=== PATIENT | female | born 1980 | race Caucasian/White ===

== ENCOUNTER 2020-11-24 01:05 | Inpatient (IN) | payer SELFPAY ==
[~2020-11-24] VITALS: Ht 172.7 cm; Wt 83.9 kg
[2020-11-24 01:08] VITALS: BP 136/77
[2020-11-24] MEDS ORDERED: MORPHINE SULFATE 4 MG/ML SYR IVP ONE (02:00)
[2020-11-24] MEDS ORDERED: ONDANSETRON 4 MG/2 ML VIAL IVP ONE (02:00)
[2020-11-24 02:25] LABS: BASOPHILS % (AUTO) 0.4 % (0.0-2.0); EOSINOPHILS % (AUTO) 0.6 % (0.0-4.0); HEMATOCRIT 30.8 % (36-48); HEMOGLOBIN 9.6 g/dL (12.0-16.0); LYMPHOCYTES # (AUTO) 0.9 K/uL (2.5-16.5); LYMPHOCYTES % (AUTO) 13.5 % (20.5-51.1); MEAN CORPUSCULAR HEMOGLOBIN 21 pg (27-31); MEAN CORPUSCULAR HGB CONC 31 g/dL (33-37); MEAN CORPUSCULAR VOLUME 68.2 fL (80-94); MONOCYTES # (AUTO) 0.3 K/uL (0.8-1.0); MONOCYTES % (AUTO) 3.9 % (1.7-9.3); NEUTROPHILS # (AUTO) 5.6 K/uL (1.8-7.7); NEUTROPHILS % (AUTO) 81.6 % (42.2-75.2); PLATELET COUNT (AUTO) 325 K/uL (140-450); RED BLOOD CELL COUNT(AUTO) 4.51 MIL/uL (4.20-5.40); RED CELL DISTRIBUTION WIDTH 17.9 % (11.6-13.7); WHITE BLOOD COUNT (AUTO) 6.9 K/uL (4.8-10.8)
[2020-11-24 02:25] LABS: APPEARANCE,URINE CLEAR (CLEAR); BILIRUBIN,URINE NEGATIVE (NEGATIVE); BLOOD, URINE TRACE-I (NEGATIVE); COLOR,URINE YELLOW (YELLOW); LEUKOCYTE ESTERASE ,URINE TRACE (NEGATIVE); NITRITE, URINE NEGATIVE (NEGATIVE); UGLUCOSE NEGATIVE (NEGATIVE)
[2020-11-24 02:34] LABS: RBC,URINE 0-5 /HPF (0-5); WBC,URINE 0-5 /HPF (0-5)
[2020-11-24 02:49] LABS: ALBUMIN 4.1 g/dL (3.4-5.0); ANION GAP 15.9 (8-16); CARBON DIOXIDE 22.9 mmol/L (21-32); CREATININE 0.7 mg/dL (0.6-1.3); POTASSIUM 3.8 mmol/L (3.5-5.1); TOTAL BILIRUBIN 0.6 mg/dL (0.0-1.0)
[2020-11-24] MEDS ORDERED: NACL 0.9% 1,000 ML IV ONE (04:45)
[2020-11-24] MEDS ORDERED: ACETAMINOPHEN 325 MG TAB PO PRN (08:50)
[2020-11-24] MEDS ORDERED: ZOLPIDEM 5 MG TAB PO PRN (08:50)
[2020-11-24] MEDS ORDERED: ONDANSETRON 4 MG/2 ML VIAL IM/IVP PRN (08:50)
[2020-11-24] MEDS ORDERED: LORazepam 2 MG/ML VIAL IM/IVP PRN (08:50)
[2020-11-24] MEDS ORDERED: DOCUSATE SODIUM 100 MG GELCAP PO PRN (08:50)
[2020-11-24] MEDS ORDERED: MORPHINE SULFATE 2 MG/ML SYR IVP PRN (08:50)
[2020-11-24] MEDS ORDERED: HYDROcodone/APAP 5/325 MG 1 TAB TAB PO PRN (08:50)
[2020-11-24 09:20] VITALS: BP 118/63
[2020-11-24 09:30] LABS: CHOL/HDL RATIO 2.9 (1-4.5); MAGNESIUM 1.9 mg/dL (1.8-2.4); PHOSPHORUS 3.1 mg/dL (2.5-4.9); THYROID STIMULATING HORMONE 0.71 uIU/mL (0.34-3.74)
[2020-11-24] MEDS ORDERED: POTASSIUM CHLORIDE 10 MEQ TABER PO PRN (09:30)
[2020-11-24] MEDS ORDERED: MAG SULF 2000 MG/WATER PREMIX 50 ML IV PRN (09:30)
[2020-11-24] MEDS: NACL 0.9% 1,000 ML IV SCH ×2 (09:39→14:45)
[2020-11-24 09:40] LABS: PROTHROMBIN TIME 9.9 secs (10.8-13.4)
[2020-11-24 09:49] LABS: BARBITURATE, URINE NEGATIVE ng/ml (NEG <=200); BENZODIAZEPINE, URINE NEGATIVE ng/mL (NEG <=200); CANNABINOID, URINE NEGATIVE ng/mL (NEG <=50); COCAINE, URINE NEGATIVE ng/mL (NEG <=300); OPIATE, URINE POSITIVE ng/mL (NEG <=2000); PHENCYCLIDINE SCREEN,URINE NEGATIVE ng/mL (NEG <=25)
[2020-11-24 16:00] VITALS: BP 111/68
[2020-11-24 20:00] VITALS: BP 115/70
[2020-11-25 04:00] VITALS: BP 116/68
[2020-11-25 06:53] LABS: BASOPHILS % (AUTO) 0.6 % (0.0-2.0); EOSINOPHILS # (AUTO) 0.2 K/uL (0-0.4); EOSINOPHILS % (AUTO) 3.6 % (0.0-4.0); HEMATOCRIT 28.1 % (36-48); HEMOGLOBIN 8.7 g/dL (12.0-16.0); LYMPHOCYTES # (AUTO) 2.2 K/uL (2.5-16.5); LYMPHOCYTES % (AUTO) 45.3 % (20.5-51.1); MEAN CORPUSCULAR HEMOGLOBIN 21 pg (27-31); MEAN CORPUSCULAR HGB CONC 31 g/dL (33-37); MEAN CORPUSCULAR VOLUME 68.7 fL (80-94); MONOCYTES # (AUTO) 0.4 K/uL (0.8-1.0); MONOCYTES % (AUTO) 9.2 % (1.7-9.3); NEUTROPHILS % (AUTO) 41.3 % (42.2-75.2); PLATELET COUNT (AUTO) 275 K/uL (140-450); RED BLOOD CELL COUNT(AUTO) 4.09 MIL/uL (4.20-5.40); RED CELL DISTRIBUTION WIDTH 18.1 % (11.6-13.7); WHITE BLOOD COUNT (AUTO) 4.8 K/uL (4.8-10.8)
[2020-11-25] MEDS: NACL 0.9% 1,000 ML IV SCH (06:54)
[2020-11-25 06:59] LABS: ANION GAP 10.2 (8-16); CARBON DIOXIDE 27.2 mmol/L (21-32); CREATININE 0.7 mg/dL (0.6-1.3); POTASSIUM 4.4 mmol/L (3.5-5.1)
[2020-11-25 07:04] LABS: PHOSPHORUS 3.8 mg/dL (2.5-4.9)
[2020-11-25 08:00] VITALS: BP 108/63
[2020-11-25 08:07] LABS: T4 (THYROXINE) 8.2 ug/dL (4.5-12.0)
[2020-11-25] MEDS ORDERED: FERROUS SULFATE 325 MG TABEC PO SCH (10:45)
[2020-11-25] MEDS ORDERED: ASCORBIC ACID 500 MG/5 ML ORASYR GT SCH (10:45)
[2020-11-25] MEDS ORDERED: LIDOCAINE MPF 1% 10 ML ONE (11:47)
[2020-11-25] MEDS ORDERED: BUPIVACAINE-MPF/EPI 0.25% 10 ML VIAL INJ ONE (11:47)
[2020-11-25] MEDS ORDERED: SEVOFLURANE 250 ML BTL INH ONE (12:40)
[2020-11-25] MEDS ORDERED: SUCCINYLCHOLINE CHLORIDE 200 MG/10 ML VIAL IVP ONE (12:40)
[2020-11-25] MEDS ORDERED: LIDOCAINE 2% 100 MG/5 ML SYR IVP ONE (12:40)
[2020-11-25] MEDS ORDERED: KETOROLAC 30 MG/ML VIAL ONE (12:40)
[2020-11-25] MEDS ORDERED: PROPOFOL 200 MG/20 ML VIAL IV ONE (12:40)
[2020-11-25] MEDS ORDERED: ONDANSETRON 4 MG/2 ML VIAL ONE (12:40)
[2020-11-25] MEDS ORDERED: GLYCOPYRROLATE 0.2 MG/ML VIAL ONE (12:40)
[2020-11-25] MEDS ORDERED: METOCLOPRAMIDE 10 MG/2 ML INJ VIAL ONE (12:40)
[2020-11-25] MEDS ORDERED: fentaNYL citrate 0.05 MG/ML VIAL ONE (12:40)
[2020-11-25] MEDS ORDERED: ROCURONIUM 50 MG/5 ML VIAL IV ONE (12:40)
[2020-11-25] MEDS ORDERED: NEOSTIGMINE 1:1000 10 MG/10 ML VIAL ONE (12:40)
[2020-11-25] MEDS ORDERED: DEXAMETHASONE 4 MG/ML VIAL ONE (12:40)
[2020-11-25] MEDS ORDERED: MEPERIDINE 25 MG/ML SYR ONE (12:40)
[2020-11-25] MEDS ORDERED: MEPERIDINE 25 MG/ML SYR IVP PRN (13:20)
[2020-11-25] MEDS ORDERED: ONDANSETRON 4 MG/2 ML VIAL IVP PRN (13:20)
[2020-11-25] MEDS: LACTATED RINGERS 1,000 ML IV SCH ×2 (13:20→21:40)
[2020-11-25] MEDS ORDERED: fentaNYL citrate 0.05 MG/ML VIAL IVP PRN (13:20)
[2020-11-25] MEDS ORDERED: diphenhydrAMINE 50 MG/ML VIAL IVP PRN (13:20)
[2020-11-25] MEDS ORDERED: HYDROcodone/APAP 5/325 MG 1 TAB TAB PO PRN (15:10)
[2020-11-25] MEDS ORDERED: HYDROmorphone 1 MG/ML AMP IVP PRN (15:10)
[2020-11-25 16:00] VITALS: BP 128/73
[2020-11-25 20:00] VITALS: BP 123/67
[2020-11-26] VITALS: BP 126/65
[2020-11-26 04:00] VITALS: BP 111/67
[2020-11-26] MEDS: LACTATED RINGERS 1,000 ML IV SCH (06:00)
[2020-11-26 06:04] LABS: BASOPHILS % (AUTO) 0.1 % (0.0-2.0); HEMATOCRIT 28.5 % (36-48); HEMOGLOBIN 8.8 g/dL (12.0-16.0); LYMPHOCYTES # (AUTO) 1.1 K/uL (2.5-16.5); LYMPHOCYTES % (AUTO) 14.4 % (20.5-51.1); MEAN CORPUSCULAR HEMOGLOBIN 21 pg (27-31); MEAN CORPUSCULAR HGB CONC 31 g/dL (33-37); MEAN CORPUSCULAR VOLUME 68.6 fL (80-94); MONOCYTES # (AUTO) 0.6 K/uL (0.8-1.0); MONOCYTES % (AUTO) 8.3 % (1.7-9.3); NEUTROPHILS # (AUTO) 5.6 K/uL (1.8-7.7); NEUTROPHILS % (AUTO) 77.2 % (42.2-75.2); PLATELET COUNT (AUTO) 292 K/uL (140-450); RED BLOOD CELL COUNT(AUTO) 4.15 MIL/uL (4.20-5.40); RED CELL DISTRIBUTION WIDTH 17.6 % (11.6-13.7); WHITE BLOOD COUNT (AUTO) 7.3 K/uL (4.8-10.8)
[2020-11-26] MEDS: NACL 0.9% 1,000 ML IV SCH (06:19)
[2020-11-26 06:55] LABS: CARBON DIOXIDE 23.8 mmol/L (21-32); CREATININE 0.7 mg/dL (0.6-1.3); POTASSIUM 3.8 mmol/L (3.5-5.1)
[2020-11-26 07:01] LABS: MAGNESIUM 1.9 mg/dL (1.8-2.4); PHOSPHORUS 4.5 mg/dL (2.5-4.9)
[2020-11-26 08:00] VITALS: BP 119/67
[2020-11-26] MEDS ORDERED: CEPH250C16 PO (10:19)
[2020-11-26] MEDS ORDERED: IBUP-2213 PO (10:19)
[2020-11-26 10:30] VITALS: BP 119/67
[2020-11-26] MEDS ORDERED: FERR325E14 PO (11:49)
== END 2020-11-26 11:35 | disposition home or self-care (01) | DRG 418 ==
LOC: MED 01:05 → MTU 04:45
PROC: BF101ZZ Fluoroscopy of Bile Ducts using Low Osmolar Contrast (ICD-10-PCS; 2020-11-25)
PROC: 0FT44ZZ Resection of Gallbladder, Percutaneous Endoscopic Approach (ICD-10-PCS; principal; 2020-11-25 13:20)
DX: K80.60 Calculus of gallbladder and bile duct with cholecystitis, unspecified, without obstruction (principal); N39.0 Urinary tract infection, site not specified; B96.81 Helicobacter pylori [H. pylori] as the cause of diseases classified elsewhere; D50.9 Iron deficiency anemia, unspecified; G89.29 Other chronic pain; K66.0 Peritoneal adhesions (postprocedural) (postinfection); E66.9 Obesity, unspecified; K80.20 Calculus of gallbladder without cholecystitis without obstruction; K30 Functional dyspepsia; Z20.822 Contact with and (suspected) exposure to COVID-19; Z87.11 Personal history of peptic ulcer disease; Z68.28 Body mass index [BMI] 28.0-28.9, adult
CPT/HCPCS: 36415; 74018; 76705; 80048; 80053; 80305; 81001; 82728; 83036; 83540; 83690; 83735; 83880; 84100; 84134; 84436; 84443; 84702; 85025; 85610; 85730; 87040; 87081; 87086; 99285; C1887; J0330; J0696; J1100; J1644; J1885; J2001; J2175; J2270; J2405; J2704; J2710; J2765; J3010; J3490; J7030; J7060; J7120; Q9965